=== PATIENT | male | born 1945 | race American Indian/Alaskan Native ===

== ENCOUNTER 2017-07-22 21:23 | Emergency (ER) | payer MEDICARE ==
[2017-07-22 21:24] VITALS: BMI 28.1
[2017-07-22 21:53] VITALS: TEMP 99.4
--- NOTE | 2017-07-22 21:55 | ED PDOC ---
Arrival/HPI - General Chief Complaint: Flu-like Symptoms Time Seen by Provider: 07/22/17 21:52 Historian: Patient, Spouse - History of Present Illness Narrative History of Present Illness (Text): 07/22/17 21:52 This 71 yo male with pmh htn, hypothyroidism, presents to this Emergency department complaining of cough, sore throat,nasal congestion, myalgias x 2 days. Patient also noted chills since yesterday. Denies sob, cp, abdominal pain, nausea, vomiting, diarrhea, dizziness, urinary symptoms, or abnormal gait. Time/Duration: Other (see hpi) Context: Home Past Medical History - Provider Review Nursing Documentation Reviewed: Yes - Reproductive Currently Lactating: No - Cardiac Hx Hypertension: Yes Hx Pacemaker: No - Pulmonary Hx Respiratory Disorders: No - Neurological Hx Neurological Disorder: No - HEENT Hx HEENT Disorder: No - Renal Hx Renal Disorder: No - Endocrine/Metabolic Hx Hypothyroidism: Yes - Hematological/Oncological Hx Blood Transfusions: No Hx Blood Transfusion Reaction: No - Musculoskeletal/Rheumatological Hx Musculoskeletal Disorders: Yes Hx Arthritis: Yes - Gastrointestinal Hx Gastrointestinal Disorders: Yes (GALLSTONES) - Genitourinary/Gynecological Hx Genitourinary Disorders: No - Psychiatric Hx Emotional Abuse: No Hx Physical Abuse: No Hx Substance Use: No - Surgical History Hx Cholecystectomy: Yes - Anesthesia Hx Anesthesia: Yes Hx Anesthesia Reactions: No Hx Malignant Hyperthermia: No - Suicidal Assessment Feels Threatened In Home Enviroment: No Family/Social History - Physician Review Nursing Documentation Reviewed: Yes Family/Social History: Other (noncontributory) Smoking Status: Never Smoked Hx Alcohol Use: No Hx Substance Use: No Hx Substance Use Treatment: No Allergies/Home Meds Allergies/Adverse Reactions: Allergies No Known Allergies Allergy (Verified 07/22/17 21:29) Home Medications: Home Meds Medication Instructions Recorded Confirmed Levothyroxine [Levoxyl] 0.15 mg PO QAM 03/16/12 07/22/17 Losartan/Hydrochlorothiazide 1 each PO QAM 10/24/15 07/22/17 [Hyzaar 100-25 Tablet] Review of Systems - Review of Systems Constitutional: Fevers, Other (chills). absent: Fatigue, Weight Change, Night Sweats Eyes: Normal. absent: Photophobia ENT: Sore Throat, Rhinorrhea Respiratory: Cough, Sputum. absent: SOB, Wheezing Cardiovascular: Normal. absent: Chest Pain, Palpitations Gastrointestinal: Normal. absent: Abdominal Pain, Nausea, Vomiting Genitourinary Male: Normal. absent: Dysuria, Frequency, Hematuria Musculoskeletal: Myalgias Skin: Normal. absent: Rash Neurological: Normal. absent: Headache, Dizziness, Focal Weakness, Gait Changes , Speech Changes, Facial Droop, Disequilibrium, Seizure Endocrine: Normal Hemo/Lymphatic: Normal Psychiatric: Normal Physical Exam Vital Signs Temp Pulse Resp BP Pulse Ox 07/22/17 21:34 99.4 F 121 H 20 121/80 96 07/22/17 21:30 99.4 F 121 H 21 121/80 97 Temperature: Afebrile Blood Pressure: Normal Pulse: Tachycardic Respiratory Rate: Normal Appearance: Positive for: Well-Appearing, Non-Toxic, Comfortable Pain Distress: None Mental Status: Positive for: Alert and Oriented X 3 - Systems Exam Head: Present: Atraumatic, Normocephalic Pupils: Present: PERRL Extroacular Muscles: Present: EOMI Conjunctiva: Present: Normal Mouth: Present: Moist Mucous Membranes Neck: Present: Normal Range of Motion Respiratory/Chest: Present: Clear to Auscultation, Good Air Exchange. No: Respiratory Distress, Accessory Muscle Use Cardiovascular: Present: Regular Rate and Rhythm, Normal S1, S2. No: Murmurs Abdomen: Present: Normal Bowel Sounds. No: Tenderness, Distention, Peritoneal Signs Back: Present: Normal Inspection. No: CVA Tenderness Upper Extremity: Present: Normal Inspection, Normal ROM. No: Cyanosis, Edema Lower Extremity: Present: Normal Inspection, Normal ROM. No: Edema Neurological: Present: GCS=15, CN II-XII Intact, Speech Normal, Motor Func Grossly Intact, Normal Sensory Function, Normal Cerebellar Funct, Gait Normal Skin: Present: Warm, Dry, Normal Color. No: Rashes Psychiatric: Present: Alert, Oriented x 3, Normal Insight, Normal Concentration Medical Decision Making ED Course and Treatment: 07/23/17 01:24 Re-evaluation. Patient feels better. Discussed results and plan with patient who expresses understanding. All questions answered and there is agreement with the plan to discharge home with instructions. Patient stable for discharge. Return if symptoms persist or worsen Re-evaluation Time: 01:25 Reassessment Condition: Re-examined, Improved - Lab Interpretations Lab Results: 07/23/17 00:39 07/23/17 00:39 Lab Results 07/23/17 00:39: WBC 7.6, RBC 5.78, Hgb 16.8, Hct 48.8, MCV 84.4, MCH 29.1, MCHC 34.4, RDW 13.5, Plt Count 221, MPV 9.2, Gran % 69.9 H, Lymph % (Auto) 7.5 L, [place] % (Auto) 21.0 H, Eos % (Auto) 1.2 L, Baso % (Auto) 0.4, Gran # 5.28, Lymph # (Auto) 0.6 L, [place] # (Auto) 1.6 H, Eos # (Auto) 0.1, Baso # (Auto) 0.03, Neutrophils % (Manual) Pending, Lymphocytes % (Manual) Pending, Monocytes % ( Manual) Pending 07/23/17 00:39: Sodium 136, Chloride 99, Potassium 4.2, Carbon Dioxide 25, Anion Gap 17, BUN 16, Creatinine 1.4, Est GFR ( Amer) > 60, Est GFR (Non- Af Amer) 50, Random Glucose 116 H, Calcium 8.9, Total Bilirubin 0.7, AST 35, ALT 39, Alkaline Phosphatase 79, Total Protein 8.2, Albumin 4.3, Globulin 3.9, Albumin/Globulin Ratio 1.1 07/23/17 00:30: pO2 85 H, VBG pH 7.45 H, VBG pCO2 39.0 L, VBG HCO3 27.1, VBG Total CO2 28.3 H, VBG O2 Sat (Calc) 98.6 H, VBG Base Excess 3.0 H, VBG Potassium 4.3, Sodium 133.0, Chloride 100.0, Glucose 117 H, Lactate 1.8, FiO2 21.0, Venous Blood Potassium 4.3 07/22/17 22:01: Influenza Typ A,B (EIA) Negative for flu a/b I have reviewed the lab results: Yes Interpretation: No clinic. lab abnormalty - RAD Interpretation Narrative RAD Interpretations (Text): 07/23/17 01:25 Chest x-rays: NAD Radiology Orders: 07/22/17 23:45 CHEST PORTABLE [RAD] Stat - EKG Interpretation Interpreted by ED Physician: Yes (NSR @ [address] changes) Type: 12 lead EKG Comparison: No previous EKG avail. - Medication Orders Current Medication Orders: Discontinued Medications Acetaminophen (Tylenol 325mg Tab) 975 mg PO STAT STA Stop: 07/22/17 21:57 Last Admin: 07/22/17 22:19 Dose: 975 mg Sodium Chloride (Sodium Chloride 0.9%) 1,000 mls @ 999 mls/hr IV .Q1H1M STA Stop: 07/23/17 00:52 Last Admin: 07/23/17 01:09 Dose: 999 mls/hr eMAR Start Stop Document 07/23/17 01:09 SS (Rec: 07/23/17 01:09 SS [id number]) Intravenous Solution Start Date 07/23/17 Start Time 01:09 End Date 07/23/17 End time 02:09 Total Infusion Time 60 Promethazine HCl/Codeine (Phenergan/Codeine Oral Syrup) 5 ml PO STAT STA Stop: 07/22/17 21:58 Last Admin: 07/22/17 22:19 Dose: 5 ml Disposition/Present on Arrival - Present on Arrival Any Indicators Present on Arrival: No History of DVT/PE: No History of Uncontrolled Diabetes: No Urinary Catheter: No History of Decub. Ulcer: No History Surgical Site Infection Following: None - Disposition Have Diagnosis and Disposition been Completed?: Yes Diagnosis: Influenza-like symptoms Disposition: HOME/ ROUTINE Disposition Time: Patient Plan: Discharge Condition: IMPROVED Discharge Instructions (ExitCare): Influenza (ED) Additional Instructions: Call private doctor for follow up visit in 1-2 days. Take medication as instructed with food. Return to emergency if symptoms worsen. Take OTC Tylenol for fever as needed, Prescriptions: Doxycycline Hyclate 100 mg PO BID #14 capsule Ibuprofen [Motrin] 600 mg PO Q6H PRN #20 tab PRN Reason: Pain, Severe (8-10) Oseltamivir [Tamiflu] 75 mg PO BID #9 cap Promethazine/Codeine [Codeine/Promethazine 10 MG/5 Ml-6.25 MG/5 Ml] 5 ml PO Q4H PRN #90 ml PRN Reason: Cough And Congestion Referrals: Shane Nunez MD [Primary Care Provider] - Follow up with primary Forms: [employer] (Amharic)
[2017-07-22] MEDS ORDERED: Promethazine/Cod 6.25mg-10mg/5ml Syr UD PO STA (21:57)
[2017-07-22] MEDS ORDERED: Sodium Chloride 0.9% 1,000 ML IV STA (23:52)
[2017-07-23 01:02] LABS: BASO # 0.03 K/mm3 (0.0-2.0); BASO % 0.4 % (0.0-3.0); EOS # 0.1 (0.0-0.7); EOS % 1.2 % (1.5-5.0); GRAN # 5.28 (1.4-6.5); GRAN % 69.9 % (50.0-68.0); HEMOGLOBIN 16.8 g/dL (14.0-18.0); LYMPH # 0.6 (1.2-3.4); LYMPH % 7.5 % (22.0-35.0); MEAN CELL VOLUME 84.4 fl (80.0-105.0); MEAN CORPUSCULAR HEMOGLOBIN 29.1 pg (25.0-35.0); MEAN CORPUSCULAR HGB CONC 34.4 g/dl (31.0-37.0); MEAN PLATELET VOLUME 9.2 fl (7.0-11.0); MONO # 1.6 (0.1-0.6); PLATELET COUNT 221 10^3/uL (120.0-450.0); RBC 5.78 10^6/uL (3.5-6.1); RED CELL DISTRIBUTION WIDTH 13.5 % (11.5-14.5); WHITE BLOOD COUNT 7.6 10^3/ul (4.5-11.0)
[2017-07-23 01:05] LABS: ALB/GLOB RATIO 1.1 (1.1-1.8); ALBUMIN 4.3 g/dL (3.0-4.8); ALT/SGPT 39 U/L (7-56); AST/SGOT 35 U/L (17-59); BLOOD UREA NITROGEN 16 mg/dL (7-21); CALCIUM 8.9 mg/dL (8.4-10.5); GFR AFRICAN-AMERICAN > 60; GFR NON-AFRICAN AMERICAN 50
[2017-07-23 01:15] LABS: VENOUS BLOOD GAS PO2 85 mm/Hg (30-55); VENOUS BLOOD PH 7.45 (7.32-7.43)
[2017-07-23 01:25] VITALS: PULSE 79; RESP 18; O2SAT 94
[2017-07-23 01:49] VITALS: BP 138/72
[2017-07-23 01:51] LABS: LYMPHOCYTE 10 % (22.0-35.0); MONOCYTE 18 % (1.0-6.0); NEUTROPHIL 72 % (50.0-70.0); PLATELET ESTIMATE NORMAL (NORMAL)
--- NOTE | 2017-07-23 10:30 | RAD ---
HISTORY: cough COMPARISON: No prior. FINDINGS: LUNGS: No active pulmonary disease. PLEURA: No significant pleural effusion identified, no pneumothorax apparent. CARDIOVASCULAR: Normal. OSSEOUS STRUCTURES: No significant abnormalities. VISUALIZED UPPER ABDOMEN: Normal. OTHER FINDINGS: None. IMPRESSION: No active disease.
--- NOTE | 2017-07-23 13:03 | CARD ---
APPROVED REPORT EKG Measurement Heart [id number] <Conclusion> Normal sinus rhythm Left axis deviation
== END 2017-07-23 02:20 | disposition home or self-care (01) ==
LOC: ED 21:23
DX: J11.1 Influenza due to unidentified influenza virus with other respiratory manifestations (principal)
CPT/HCPCS: 71045; 80053; 82803; 85025; 87040; 87804; 93005; 96360; 99283; J7040

== ENCOUNTER 2018-03-20 15:00 | Emergency (ER) | payer MEDICARE ==
[2018-03-20 15:01] VITALS: BMI 28.1
[2018-03-20 15:30] VITALS: RESP 18
--- NOTE | 2018-03-20 15:39 | ED PDOC ---
Arrival/HPI - General Chief Complaint: Headache Time Seen by Provider: 03/20/18 15:20 Historian: Patient, Spouse - History of Present Illness Time/Duration: Other (3 days) Symptom Onset: Gradual Symptom Course: Worsening Quality: Stabbing Severity Level: Severe Activities at Onset: Rest Associated Symptoms (Text): 03/20/18 15:36 Patient complains of a three-day history of stabbing shooting left sided headache. There is no rash. No trauma. No fever or chills. No cough congestion URI or earache. No dizziness or lightheadedness. No numbness tingling or paresthesias. No weakness. No nausea or vomiting. He had a similar episode approximately one year ago. He has not been imaged. He took some Excedrin and had some minimal improvement. He tried gabapentin with no improvement. Past Medical History - Infectious Disease Hx of Infectious Diseases: None - Reproductive Currently Lactating: No - Cardiac Hx Cardiac Disorders: Yes Hx Hypertension: Yes - Pulmonary Hx Respiratory Disorders: No - Neurological Hx Neurological Disorder: No - HEENT Hx HEENT Disorder: No - Renal Hx Renal Disorder: No - Endocrine/Metabolic Hx Endocrine Disorders: Yes Hx Hypothyroidism: Yes Other/Comment: Hx Thyroid CA - Hematological/Oncological Hx Blood Disorders: No - Integumentary Hx Dermatological Disorder: No - Musculoskeletal/Rheumatological Hx Musculoskeletal Disorders: Yes Hx Arthritis: Yes - Gastrointestinal Hx Gastrointestinal Disorders: Yes (GALLSTONES) - Genitourinary/Gynecological Hx Genitourinary Disorders: No - Psychiatric Hx Psychophysiologic Disorder: No Hx Substance Use: No - Surgical History Hx Cholecystectomy: Yes Hx Thyroidectomy: Yes - Anesthesia Hx Anesthesia: Yes Hx Anesthesia Reactions: No Hx Malignant Hyperthermia: No - Suicidal Assessment Feels Threatened In Home Enviroment: No Family/Social History - Physician Review Nursing Documentation Reviewed: Yes Family/Social History: Unknown Family HX Smoking Status: Never Smoked Hx Alcohol Use: No Hx Substance Use: No Hx Substance Use Treatment: No Allergies/Home Meds Allergies/Adverse Reactions: Allergies No Known Allergies Allergy (Verified 07/22/17 21:29) Home Medications: Home Meds Medication Instructions Recorded Confirmed Levothyroxine [Levoxyl] 0.15 mg PO QAM 03/16/12 07/22/17 Losartan/Hydrochlorothiazide 1 each PO QAM 10/24/15 07/22/17 [Hyzaar 100-25 Tablet] Review of Systems - Physician Review All systems were reviewed & negative as marked: Yes - Review of Systems Constitutional: absent: Fatigue, Fevers Eyes: absent: Vision Changes, Photophobia, Eye Pain ENT: absent: Hearing Changes Respiratory: Normal Cardiovascular: Normal Gastrointestinal: absent: Nausea, Vomiting Neurological: Headache. absent: Dizziness, Focal Weakness, Gait Changes, Speech Changes, Facial Droop, Disequilibrium, Seizure Physical Exam Vital Signs Temp Pulse Resp BP Pulse Ox 03/20/18 15:30 97.9 F 80 18 155/94 H 97 Temperature: Afebrile Blood Pressure: Hypertensive Pulse: Regular Respiratory Rate: Normal Appearance: Positive for: Well-Appearing, Non-Toxic, Uncomfortable Pain Distress: Severe Mental Status: Positive for: Alert and Oriented X 3 - Systems Exam Head: Present: Atraumatic, Normocephalic Pupils: Present: PERRL Extroacular Muscles: Present: EOMI Conjunctiva: Present: Normal Ears: Present: NORMAL TM, Normal Canal. No: Erythema, TM Bulging Mouth: Present: Moist Mucous Membranes Pharnyx: No: ERYTHEMA, EXUDATE, TONSILS ENLARGED Neck: Present: Normal Range of Motion, Other (anterior scar). No: Meningeal Signs, MIDLINE TENDERNESS, Paraspinal Tenderness Respiratory/Chest: Present: Clear to Auscultation, Good Air Exchange. No: Respiratory Distress, Accessory Muscle Use Cardiovascular: Present: Regular Rate and Rhythm, Normal S1, S2. No: Murmurs Abdomen: No: Tenderness, Distention, Peritoneal Signs, Rebound, Guarding Upper Extremity: Present: Normal Inspection. No: Cyanosis, Edema Lower Extremity: Present: Normal Inspection. No: Edema Neurological: Present: GCS=15, CN II-XII Intact, Speech Normal, Motor Func Grossly Intact, Normal Sensory Function, Normal Cerebellar Funct Skin: Present: Warm, Dry, Normal Color. No: Rashes Psychiatric: Present: Alert, Oriented x 3, Normal Insight, Normal Concentration Medical Decision Making ED Course and Treatment: 03/20/18 16:27 No improvement with Toradol. Morphine and Zofran have been ordered. Waiting for CT scan. 03/20/18 17:41 Headache is markedly improved post morphine. Waiting for CT scan results. 03/20/18 17:46 Patient will be discharged home accompanied by his to follow-up with PMD. Follow up in ER as needed. - RAD Interpretation Radiology Orders: 03/20/18 15:35 HEAD W/O CONTRAST [CT] Stat CT scan of the head as read by the radiologist shows no acute findings. Experimental Display Builder: Radiologist Disposition/Present on Arrival - Present on Arrival Any Indicators Present on Arrival: No History of DVT/PE: No History of Uncontrolled Diabetes: No Urinary Catheter: No History of Decub. Ulcer: No History Surgical Site Infection Following: None - Disposition Have Diagnosis and Disposition been Completed?: Yes Diagnosis: Headache Disposition: HOME/ ROUTINE Disposition Time: 17:47 Patient Plan: Discharge Condition: IMPROVED Discharge Instructions (ExitCare): Headache, Adult (DC) Additional Instructions: Follow-up with PMD. Follow up in ER as needed. Prescriptions: Tramadol HCl [Ultram] 50 mg PO Q6 PRN #15 tab PRN Reason: Pain Referrals: Shane Nunez MD [Primary Care Provider] - Follow up with primary Forms: [employer] (Telugu)
[2018-03-20] MEDS ORDERED: Morphine 4 mg/ml ISec SC STA (16:28)
--- NOTE | 2018-03-20 17:42 | CT ---
Date of service: 03/20/2018 PROCEDURE: CT HEAD WITHOUT CONTRAST. HISTORY: RAZO COMPARISON: None available. TECHNIQUE: Axial computed tomography images were obtained through the head/brain without intravenous contrast. Radiation dose: Total exam DLP = 1073.4 mGy-cm. This CT exam was performed using one or more of the following dose reduction techniques: Automated exposure control, adjustment of the mA and/or kV according to patient size, and/or use of iterative reconstruction technique. FINDINGS: HEMORRHAGE: No intracranial hemorrhage. BRAIN: No mass effect or edema. Mild atrophy. Mild chronic microvascular ischemic changes. VENTRICLES: Unremarkable. No hydrocephalus. CALVARIUM: Unremarkable. PARANASAL SINUSES: Unremarkable as visualized. No significant inflammatory changes. MASTOID AIR CELLS: Unremarkable as visualized. No inflammatory changes. OTHER FINDINGS: None. IMPRESSION: No acute intracranial pathology.
[2018-03-20 18:01] VITALS: BP 164/91; PULSE 81; TEMP 97.8; O2SAT 98
== END 2018-03-20 18:26 | disposition home or self-care (01) ==
LOC: ED 15:00
DX: R51 Headache (principal); I10 Essential (primary) hypertension
CPT/HCPCS: 70450; 96372; 99285; J1885; J2270